=== PATIENT | female | born 1975 | race Caucasian/White ===

== ENCOUNTER 2016-12-17 12:05 | Emergency (ER) | payer OTHER ==
[2016-12-17 12:25] VITALS: RESP 18; O2SAT 98
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
[2016-12-17] MEDS ORDERED: IBUPROFEN 600 MG TAB PO ONE (15:05)
[2016-12-17 15:22] VITALS: BP 132/87; PULSE 82; TEMP 97.2
== END 2016-12-17 15:22 | disposition home or self-care (01) ==
DX: S00.83XA Contusion of other part of head, initial encounter (principal); W22.8XXA Striking against or struck by other objects, initial encounter

== ENCOUNTER → 2017-05-15 | Outpatient (CLI) | payer OTHER | LOC: FIMAGING 08:05 | PROVIDERS: ATTEND Physician Assistant | DX: R10.84 Generalized abdominal pain (principal); I70.0 Atherosclerosis of aorta ==